=== PATIENT | female | born 1955 | race Caucasian/White ===

== ENCOUNTER 2021-11-14 16:33 | Emergency (ER) | payer MEDICARE, OTHER ==
[~2021-11-14 16:33] MED LIST: ELAVIL50 MG PO; FOLIC ACID1 MG PO; LEVOXYL100 MCG PO; LEXAPRO 10MG TA10 MG PO; NORCO 5-325 TA1 EACH PO; NORCO 5/3251 EACH PO; PREDNISONE 20MG20 MG PO; PROTONIX 40MG T40 MG PO; RHEUMATREX2.5 MG PO; WELLBUTRIN SR150 M1 PO
== END 2021-11-14 19:12 | disposition home or self-care (01) ==
LOC: FER 16:33
DX: M79.605 Pain in left leg (principal); K59.00 Constipation, unspecified; Z88.8 Allergy status to other drugs, medicaments and biological substances
CPT/HCPCS: 74022; 93971

== ENCOUNTER 2021-12-03 17:01 | Emergency (ER) | payer MEDICARE, OTHER ==
[~2021-12-03 17:01] MED LIST changes: +VICODIN 10/3251 EACH PO
[2021-12-03 19:48] LABS: BASOPHIL 0.4 % (0-2); EOSINOPHIL 1.9 % (0-7); HCT 31.2 % (37.0-47.0); HGB 9.8 g/dl (12.5-16.0); LYMPHOCYTE 24.5 % (15-48); MCH 28.3 pg (25.0-31.0); MCHC 31.4 g/dL (32.0-36.0); MCV 90.2 fL (78.0-100.0); MONOCYTE 8.3 % (0-12); MPV 8.6 fL (6.0-9.5); NEUTROPHIL 64.8 % (41-80); NRBC 0; PLT 305 K/uL (150-400); RBC 3.46 M/uL (4.20-5.40); RDW 13.7 % (11.5-14.0); WBC 7.3 K/uL (4.0-10.5)
[2021-12-03 20:03] LABS: ALBUMIN 3.3 g/dL (3.4-5.0); BILIRUBIN - TOTAL 0.2 mg/dL (0.2-1.0); BUN/CREAT RATIO (CALC) 25.3 RATIO; CREATININE 0.75 mg/dL (0.51-0.95); POTASSIUM 4.2 mmol/L (3.5-5.1); TOTAL PROTEIN 7.3 g/dL (6.4-8.2)
[2021-12-03] MEDS ORDERED: COLACE100 MG PO (21:47)
== END 2021-12-03 22:05 | disposition home or self-care (01) ==
LOC: FER 17:01
PROVIDERS: Emergency Medicine
DX: K59.00 Constipation, unspecified (principal); E03.9 Hypothyroidism, unspecified; Z88.5 Allergy status to narcotic agent; Z79.890 Hormone replacement therapy
CPT/HCPCS: 36415; 74018; 80053; 85025; J1885; J2405; J7030